=== PATIENT | female | born 1940 | race Caucasian/White ===

== ENCOUNTER 2020-04-23 12:13 | Inpatient (IN) ==
[2020-04-23] MEDS ORDERED: Dexamethasone 4 MG/ML VIAL IVP ONE (12:27)
[2020-04-23 13:10] LABS: Hemoglobin 11.8 g/dL (11.5-15.4); Immature Granulocytes % 0.4 % (0-4); Lymphocytes # 0.2 K/mcL (0.6-4.6); Lymphocytes % 9.6 %; Mean Corpuscular HGB Conc 33.7 g/dL (31.6-35.5); Mean Corpuscular Hemoglobin 30.9 pg (28.0-33.3); Mean Corpuscular Volume 91.6 fL (83.0-100.0); Mean Platelet Volume 11.6 fL (9.4-12.4); Monocytes # 0.3 K/mcL (0.0-1.3); Red Blood Count 3.82 M/mcL (3.82-4.97); Red Cell Distribution Width 17.7 % (11.5-14.5); White Blood Count 2.5 K/mcL (4.3-11.1)
[2020-04-23 13:12] LABS: Platelet Count 58 K/mcL (140-400)
[2020-04-23 13:14] LABS: INR 1.2; Prothrombin Time 14.1 Seconds (9.4-12.1)
[2020-04-23 13:16] LABS: Activated Partial Thrombo Time 43.7 Seconds (26.0-36.0)
[2020-04-23 13:35] LABS: Alanine Aminotransferase 18 Units/L (7-52); Albumin 3.2 g/dL (3.5-5.7); Albumin/Globulin Ratio 1.3 (1.1-2.2); Alkaline Phosphatase 69 Units/L (34-104); Aspartate Amino Transferase 43 Units/L (13-39); BUN/Creatinine Ratio 19 (6-26); Bilirubin,Direct 0.2 mg/dL (0.0-0.2); Bilirubin,Indirect 0.5 mg/dL (0.0-1.0); Bilirubin,Total 0.7 mg/dL (0.3-1.0); Blood Urea Nitrogen 10 mg/dL (8-23); C-Reactive Protein 32 mg/L (Less than 10); Calcium 8.2 mg/dL (8.6-10.3); Carbon Dioxide 27 mEq/L (23-29); Chloride 97 mEq/L (98-107); Globulin 2.4 g/dL (2.4-3.5); Glucose 134 mg/dL (70-105); Lactate Dehydrogenase 226 Units/L (140-271); Magnesium 1.5 mg/dL (1.6-2.6); Osmolality,Calculated 277 (280-300); Phosphorous 2.7 mg/dL (2.7-4.5); Potassium 3.4 mEq/L (3.5-5.1); Sodium 133 mEq/L (136-145); Total Protein 5.6 g/dL (6.4-8.9); Troponin I 0.05 ng/mL (< 0.04); eGFR For African Americans > 60 (> 60); eGFR For Non-African Americans > 60 (> 60)
[2020-04-23 14:10] LABS: Ferritin 391 ng/mL (10-120)
[2020-04-23 15:36] LABS: Bilirubin,Urine Negative (Negative); Blood,Urine Negative (Negative); Clarity,Urine Clear (Clear); Color,Urine Light-Yellow (Yellow); Glucose,Urine (UA) Normal (Normal); Ketones,Urine Negative (Negative); Leukocyte Esterase,Urine Negative (Negative); Nitrite,Urine Negative (Negative); Protein,Urine Negative (Neg-Trace); Specific Gravity,Urine 1.016 (1.010-1.025); Urobilinogen,Urine Normal (Normal)
[2020-04-23] MEDS ORDERED: Naloxone 0.4 MG/ML INJ IVP PRN (17:22)
[2020-04-23] MEDS ORDERED: Acetaminophen 325 MG TABLET PO PRN (17:22)
[2020-04-23] MEDS ORDERED: Ondansetron 4 MG/2 ML VIAL IVP PRN (17:22)
[2020-04-23] MEDS ORDERED: *HR* Dextrose 50 % in Water (Vial) 50 ML VIAL IVP PRN (17:24)
[2020-04-23] MEDS ORDERED: Dextrose Gel 15 GM/37.5 ML TUBE PO PRN ×2 (17:24)
[2020-04-23] MEDS ORDERED: D5% in Water 1,000 ML IVC PRN (17:24)
[2020-04-23] MEDS ORDERED: Potassium Chloride Elixir 20 MEQ/15 ML UDC PO ONE (17:40)
[2020-04-23] MEDS ORDERED: Benzonatate 100 MG CAPSULE PO PRN (17:42)
[2020-04-23] MEDS: Insulin LISPRO 300 UNITS/3 ML VIAL SQ SCH (20:27)
[2020-04-23] MEDS ORDERED: *HR* LORazepam 0.5 MG TABLET PO PRN (21:00)
[2020-04-23] MEDS: *HR* Heparin 5,000 UNIT/ML VIAL SQ SCH (23:40)
[2020-04-24 04:21] LABS: Monocytes % 13.6 %; Red Cell Distribution Width 17.5 % (11.5-14.5)
[2020-04-24 04:22] LABS: Basophils % 0.8 %; Hematocrit 33.6 % (35.3-44.9); Hemoglobin 11.3 g/dL (11.5-15.4); Immature Granulocytes % 0.8 % (0-4); Immature Platelets 5.2 % (1.1-6.1); Lymphocytes # 0.3 K/mcL (0.6-4.6); Lymphocytes % 23.7 %; Mean Corpuscular HGB Conc 33.6 g/dL (31.6-35.5); Mean Corpuscular Hemoglobin 30.5 pg (28.0-33.3); Mean Corpuscular Volume 90.8 fL (83.0-100.0); Mean Platelet Volume 12.2 fL (9.4-12.4); Monocytes # 0.2 K/mcL (0.0-1.3); Neutrophils # 0.7 K/mcL (1.6-8.9); Segmented Neutrophils % 61.1 %; White Blood Count 1.2 K/mcL (4.3-11.1)
[2020-04-24 04:23] LABS: Platelet Count 45 K/mcL (140-400)
[2020-04-24 04:37] LABS: Alanine Aminotransferase 15 Units/L (7-52); Albumin 2.8 g/dL (3.5-5.7); Albumin/Globulin Ratio 1.3 (1.1-2.2); Alkaline Phosphatase 64 Units/L (34-104); Aspartate Amino Transferase 35 Units/L (13-39); BUN/Creatinine Ratio 23 (6-26); Bilirubin,Total 0.6 mg/dL (0.3-1.0); Blood Urea Nitrogen 11 mg/dL (8-23); Calcium 7.9 mg/dL (8.6-10.3); Carbon Dioxide 27 mEq/L (23-29); Chloride 100 mEq/L (98-107); Globulin 2.1 g/dL (2.4-3.5); Glucose 238 mg/dL (70-105); Magnesium 1.5 mg/dL (1.6-2.6); Osmolality,Calculated 285 (280-300); Phosphorous 3.2 mg/dL (2.7-4.5); Potassium 2.9 mEq/L (3.5-5.1); Sodium 134 mEq/L (136-145); Total Protein 4.9 g/dL (6.4-8.9); Troponin I 0.04 ng/mL (< 0.04); eGFR For African Americans > 60 (> 60); eGFR For Non-African Americans > 60 (> 60)
[2020-04-24 06:14] LABS: Reactive Lymphocytes Present (Not Present)
[2020-04-24 06:15] LABS: Platelet Estimate Marked Decrease (Normal)
[2020-04-24] MEDS: Insulin LISPRO 300 UNITS/3 ML VIAL SQ SCH ×2 (08:31→11:48)
[2020-04-24] MEDS: *HR* Heparin 5,000 UNIT/ML VIAL SQ SCH (08:33)
[2020-04-24] MEDS ORDERED: Dexamethasone 4 MG/ML VIAL IVP SCH (09:00)
[2020-04-24] MEDS ORDERED: Potassium Chloride Elixir 20 MEQ/15 ML UDC PO ONE (10:05)
[2020-04-24 11:52] VITALS: BP 133/68
== END 2020-04-24 15:34 | disposition home or self-care (01) | DRG 177 ==
LOC: 2NENU 12:13 → EMEROOARM 12:13 → 2NENU 19:40 → SUATTDRO 21:58
PROVIDERS: ADMIT Internal Medicine; ATTEND Internal Medicine

== ENCOUNTER 2020-04-28 12:41 | Inpatient (IN) ==
[2020-04-28] MEDS ORDERED: Acetaminophen 325 MG TABLET PO ONE (12:50)
[2020-04-28] MEDS ORDERED: Azithromycin 500 MG in 0.9 % Sodium Chloride 250 ML IVPB ONE (12:50)
[2020-04-28] MEDS ORDERED: Ondansetron 4 MG/2 ML VIAL IVP ONE (12:50)
[2020-04-28] MEDS ORDERED: Dexamethasone 4 MG/ML VIAL IVP ONE ×2 (12:52→15:17)
[2020-04-28] MEDS ORDERED: 0.9 % Sodium Chloride 1,000 ML IVC ONE (13:05)
[2020-04-28 13:17] LABS: Basophils % 0.2 %; Mean Corpuscular Hemoglobin 30.8 pg (28.0-33.3)
[2020-04-28 13:19] LABS: Hematocrit 36.1 % (35.3-44.9); Hemoglobin 12.2 g/dL (11.5-15.4); Immature Granulocytes % 1.4 % (0-4); Immature Platelets 5.9 % (1.1-6.1); Lymphocytes # 0.2 K/mcL (0.6-4.6); Lymphocytes % 3.8 %; Mean Corpuscular HGB Conc 33.8 g/dL (31.6-35.5); Mean Corpuscular Volume 91.2 fL (83.0-100.0); Mean Platelet Volume 11.9 fL (9.4-12.4); Monocytes # 0.2 K/mcL (0.0-1.3); Monocytes % 4.1 %; Neutrophils # 5.3 K/mcL (1.6-8.9); Red Blood Count 3.96 M/mcL (3.82-4.97); Red Cell Distribution Width 18.2 % (11.5-14.5); Segmented Neutrophils % 90.5 %; White Blood Count 5.8 K/mcL (4.3-11.1)
[2020-04-28 13:28] LABS: Platelet Count 54 K/mcL (140-400)
[2020-04-28 13:43] LABS: Alanine Aminotransferase 29 Units/L (7-52); Albumin 2.9 g/dL (3.5-5.7); Albumin/Globulin Ratio 1.2 (1.1-2.2); Alkaline Phosphatase 90 Units/L (34-104); Aspartate Amino Transferase 54 Units/L (13-39); BUN/Creatinine Ratio 42 (6-26); Bilirubin,Direct 0.3 mg/dL (0.0-0.2); Bilirubin,Indirect 0.5 mg/dL (0.0-1.0); Bilirubin,Total 0.8 mg/dL (0.3-1.0); Blood Urea Nitrogen 22 mg/dL (8-23); C-Reactive Protein 131 mg/L (Less than 10); Calcium 8.3 mg/dL (8.6-10.3); Carbon Dioxide 25 mEq/L (23-29); Chloride 97 mEq/L (98-107); Globulin 2.4 g/dL (2.4-3.5); Glucose 182 mg/dL (70-105); Lactate Dehydrogenase 285 Units/L (140-271); Magnesium 1.4 mg/dL (1.6-2.6); Osmolality,Calculated 278 (280-300); Phosphorous 2.4 mg/dL (2.7-4.5); Potassium 3.6 mEq/L (3.5-5.1); Sodium 130 mEq/L (136-145); Total Protein 5.3 g/dL (6.4-8.9); Troponin I 0.04 ng/mL (< 0.04); eGFR For African Americans > 60 (> 60); eGFR For Non-African Americans > 60 (> 60)
[2020-04-28] MEDS ORDERED: Magnesium Sulfate 1 GM/102 ML PIGGYBACK IVPB ONE (13:49)
[2020-04-28 14:44] LABS: INR 1.3
[2020-04-28] MEDS ORDERED: Ondansetron ODT 4 MG TAB.RAPDIS SL PRN (14:45)
[2020-04-28] MEDS ORDERED: Naloxone 0.4 MG/ML INJ IVP PRN (14:45)
[2020-04-28 14:47] LABS: Activated Partial Thrombo Time 28.1 Seconds (26.0-36.0)
[2020-04-28] MEDS ORDERED: Aspirin 325 MG TABLET PO ONE (15:05)
[2020-04-28] MEDS ORDERED: *HR* Dextrose 50 % in Water (Vial) 50 ML VIAL IVP PRN (15:10)
[2020-04-28] MEDS ORDERED: Dextrose Gel 15 GM/37.5 ML TUBE PO PRN ×2 (15:10)
[2020-04-28] MEDS ORDERED: D5% in Water 1,000 ML IVC PRN (15:10)
[2020-04-28 15:51] LABS: Ferritin 398 ng/mL (10-120)
[2020-04-28] MEDS: Insulin DETEMIR 100 UNIT/ML X5UNITS SQ SCH (20:05)
[2020-04-28] MEDS: Insulin LISPRO 300 UNITS/3 ML VIAL SQ SCH ×2 (21:55→22:00)
[2020-04-29 03:29] LABS: Hematocrit 33.3 % (35.3-44.9); Mean Corpuscular Hemoglobin 30.6 pg (28.0-33.3); Mean Corpuscular Volume 92.5 fL (83.0-100.0); Mean Platelet Volume 11.5 fL (9.4-12.4); Red Blood Count 3.6 M/mcL (3.82-4.97)
[2020-04-29 03:31] LABS: Immature Platelets 6.6 % (1.1-6.1); White Blood Count 3.2 K/mcL (4.3-11.1)
[2020-04-29 03:43] LABS: BUN/Creatinine Ratio 45 (6-26); Blood Urea Nitrogen 20 mg/dL (8-23); Calcium 7.8 mg/dL (8.6-10.3); Carbon Dioxide 27 mEq/L (23-29); Chloride 102 mEq/L (98-107); Glucose 228 mg/dL (70-105); Osmolality,Calculated 286 (280-300); Potassium 3.9 mEq/L (3.5-5.1); Sodium 133 mEq/L (136-145); eGFR For African Americans > 60 (> 60); eGFR For Non-African Americans > 60 (> 60)
[2020-04-29] MEDS: *HR* Enoxaparin 40 MG/0.4 ML SYRINGE SQ SCH (04:42)
[2020-04-29] MEDS: Insulin LISPRO 300 UNITS/3 ML VIAL SQ SCH ×4 (08:01→21:19)
[2020-04-29] MEDS: Furosemide 40 MG/4 ML VIAL IVP SCH ×2 (08:03→21:10)
[2020-04-29] MEDS: Aspirin 81 MG TAB.CHEW PO SCH (08:03)
[2020-04-29] MEDS: Dexamethasone 4 MG/ML VIAL IVP SCH (08:04)
[2020-04-29] MEDS: Acetaminophen 325 MG TABLET PO PRN ×2 (13:44→21:26)
[2020-04-29] MEDS: Insulin DETEMIR 100 UNIT/ML X5UNITS SQ SCH (21:11)
[2020-04-30] MEDS ORDERED: Melatonin 3 MG TABLET PO ONE (03:08)
[2020-04-30] MEDS: *HR* Enoxaparin 40 MG/0.4 ML SYRINGE SQ SCH (06:09)
[2020-04-30] MEDS: Dexamethasone 4 MG/ML VIAL IVP SCH (10:34)
[2020-04-30] MEDS: Aspirin 81 MG TAB.CHEW PO SCH (10:34)
[2020-04-30] MEDS: Insulin LISPRO 300 UNITS/3 ML VIAL SQ SCH ×4 (10:35→21:48)
[2020-04-30] MEDS: Furosemide 40 MG/4 ML VIAL IVP SCH ×2 (10:35→21:48)
[2020-04-30] MEDS: Acetaminophen 325 MG TABLET PO PRN ×2 (11:17→18:53)
[2020-04-30 11:44] LABS: Hematocrit 41.2 % (35.3-44.9); Immature Platelets 8.8 % (1.1-6.1); Mean Corpuscular Hemoglobin 30.3 pg (28.0-33.3); Mean Corpuscular Volume 89.2 fL (83.0-100.0); Mean Platelet Volume 11.5 fL (9.4-12.4); Red Blood Count 4.62 M/mcL (3.82-4.97); Red Cell Distribution Width 17.8 % (11.5-14.5)
[2020-04-30 12:07] LABS: BUN/Creatinine Ratio 43 (6-26); Blood Urea Nitrogen 20 mg/dL (8-23); Calcium 8.6 mg/dL (8.6-10.3); Carbon Dioxide 25 mEq/L (23-29); Chloride 97 mEq/L (98-107); Glucose 82 mg/dL (70-105); Osmolality,Calculated 280 (280-300); Potassium 3.8 mEq/L (3.5-5.1); Sodium 134 mEq/L (136-145); eGFR For African Americans > 60 (> 60); eGFR For Non-African Americans > 60 (> 60)
[2020-04-30] MEDS ORDERED: Insulin DETEMIR 100 UNIT/ML X5UNITS SQ SCH (21:00)
[2020-04-30] MEDS: *HR* LORazepam 2 MG/ML VIAL IVP PRN (21:47)
[2020-05-01] MEDS: *HR* Enoxaparin 40 MG/0.4 ML SYRINGE SQ SCH (05:35)
[2020-05-01 06:32] LABS: Red Cell Distribution Width 17.5 % (11.5-14.5)
[2020-05-01 06:35] LABS: Hematocrit 40.7 % (35.3-44.9); Hemoglobin 13.7 g/dL (11.5-15.4); Immature Platelets 7.7 % (1.1-6.1); Mean Corpuscular HGB Conc 33.7 g/dL (31.6-35.5); Mean Corpuscular Hemoglobin 30.3 pg (28.0-33.3); Mean Platelet Volume 11.9 fL (9.4-12.4); Red Blood Count 4.52 M/mcL (3.82-4.97); White Blood Count 6.1 K/mcL (4.3-11.1)
[2020-05-01 06:47] LABS: BUN/Creatinine Ratio 44 (6-26); Blood Urea Nitrogen 22 mg/dL (8-23); Calcium 8.9 mg/dL (8.6-10.3); Carbon Dioxide 30 mEq/L (23-29); Chloride 92 mEq/L (98-107); Glucose 188 mg/dL (70-105); Osmolality,Calculated 286 (280-300); Potassium 3.6 mEq/L (3.5-5.1); Sodium 134 mEq/L (136-145); eGFR For African Americans > 60 (> 60); eGFR For Non-African Americans > 60 (> 60)
[2020-05-01] MEDS: Insulin LISPRO 300 UNITS/3 ML VIAL SQ SCH ×5 (09:04→21:51)
[2020-05-01] MEDS: Aspirin 81 MG TAB.CHEW PO SCH (09:12)
[2020-05-01] MEDS: Furosemide 40 MG/4 ML VIAL IVP SCH ×2 (09:12→21:50)
[2020-05-01] MEDS: Dexamethasone 4 MG/ML VIAL IVP SCH (09:13)
[2020-05-01] MEDS ORDERED: Dexamethasone Sodium Phos/PF 10 MG/ML VIAL IVP SCH (09:15)
[2020-05-01] MEDS ORDERED: Insulin DETEMIR 100 UNIT/ML X5UNITS SQ SCH (09:15)
[2020-05-01] MEDS ORDERED: Dexamethasone 4 MG/ML VIAL IVP ONE (09:30)
[2020-05-01] MEDS: Acetaminophen 325 MG TABLET PO PRN (10:59)
[2020-05-01] MEDS ORDERED: Insulin DETEMIR 100 UNIT/ML X5UNITS SQ ONE (17:31)
[2020-05-01] MEDS: *HR* LORazepam 2 MG/ML VIAL IVP PRN (21:51)
[2020-05-01] MEDS: Insulin DETEMIR 100 UNIT/ML X5UNITS SQ SCH (21:51)
[2020-05-02] MEDS: *HR* Enoxaparin 40 MG/0.4 ML SYRINGE SQ SCH (05:35)
[2020-05-02 05:57] LABS: Mean Corpuscular Volume 88.5 fL (83.0-100.0)
[2020-05-02 05:59] LABS: Hematocrit 39.2 % (35.3-44.9); Hemoglobin 13.4 g/dL (11.5-15.4); Immature Platelets 7.5 % (1.1-6.1); Mean Corpuscular HGB Conc 34.2 g/dL (31.6-35.5); Mean Corpuscular Hemoglobin 30.2 pg (28.0-33.3); Mean Platelet Volume 11.8 fL (9.4-12.4); Red Blood Count 4.43 M/mcL (3.82-4.97)
[2020-05-02 06:17] LABS: BUN/Creatinine Ratio 46 (6-26); Blood Urea Nitrogen 23 mg/dL (8-23); Calcium 8.9 mg/dL (8.6-10.3); Carbon Dioxide 34 mEq/L (23-29); Chloride 92 mEq/L (98-107); Glucose 126 mg/dL (70-105); Osmolality,Calculated 279 (280-300); Potassium 3.2 mEq/L (3.5-5.1); Sodium 132 mEq/L (136-145); eGFR For African Americans > 60 (> 60); eGFR For Non-African Americans > 60 (> 60)
[2020-05-02] MEDS: Dexamethasone Sodium Phos/PF 10 MG/ML VIAL IVP SCH (07:57)
[2020-05-02] MEDS: Furosemide 40 MG/4 ML VIAL IVP SCH ×2 (07:58→20:24)
[2020-05-02] MEDS: Aspirin 81 MG TAB.CHEW PO SCH (08:00)
[2020-05-02] MEDS: Insulin LISPRO 300 UNITS/3 ML VIAL SQ SCH ×9 (08:56→20:24)
[2020-05-02] MEDS: Insulin DETEMIR 100 UNIT/ML X5UNITS SQ SCH ×2 (09:12→20:24)
[2020-05-02] MEDS: Acetaminophen 325 MG TABLET PO PRN ×2 (09:12→21:10)
[2020-05-02] MEDS: Sennosides/Docusate Sodium TABLET PO SCH ×2 (16:38→20:24)
[2020-05-02] MEDS: polyethylene glycoL 3350 17 GM POWD.PACK PO SCH (16:38)
[2020-05-02] MEDS ORDERED: QUEtiapine Fumarate 100 MG TABLET PO SCH (21:00)
[2020-05-02] MEDS: *HR* LORazepam 2 MG/ML VIAL IVP PRN (21:05)
[2020-05-03] MEDS: *HR* Enoxaparin 40 MG/0.4 ML SYRINGE SQ SCH (04:30)
[2020-05-03 04:44] LABS: Hematocrit 38.2 % (35.3-44.9); Hemoglobin 12.9 g/dL (11.5-15.4); Immature Platelets 7.7 % (1.1-6.1); Mean Corpuscular HGB Conc 33.8 g/dL (31.6-35.5); Mean Corpuscular Hemoglobin 30.1 pg (28.0-33.3); Mean Corpuscular Volume 89.3 fL (83.0-100.0); Mean Platelet Volume 12.3 fL (9.4-12.4); Red Blood Count 4.28 M/mcL (3.82-4.97); Red Cell Distribution Width 16.8 % (11.5-14.5); White Blood Count 8.4 K/mcL (4.3-11.1)
[2020-05-03 05:17] LABS: BUN/Creatinine Ratio 53 (6-26); Blood Urea Nitrogen 32 mg/dL (8-23); Calcium 8.8 mg/dL (8.6-10.3); Carbon Dioxide 32 mEq/L (23-29); Chloride 93 mEq/L (98-107); Glucose 92 mg/dL (70-105); Osmolality,Calculated 279 (280-300); Potassium 4.2 mEq/L (3.5-5.1); Sodium 131 mEq/L (136-145); eGFR For African Americans > 60 (> 60); eGFR For Non-African Americans > 60 (> 60)
[2020-05-03] MEDS: Dexamethasone Sodium Phos/PF 10 MG/ML VIAL IVP SCH (08:28)
[2020-05-03] MEDS: Insulin LISPRO 300 UNITS/3 ML VIAL SQ SCH ×4 (08:28→12:27)
[2020-05-03] MEDS: Sennosides/Docusate Sodium TABLET PO SCH (08:28)
[2020-05-03] MEDS: Furosemide 40 MG/4 ML VIAL IVP SCH (08:28)
[2020-05-03] MEDS: Aspirin 81 MG TAB.CHEW PO SCH (08:29)
[2020-05-03] MEDS: Insulin DETEMIR 100 UNIT/ML X5UNITS SQ SCH (08:29)
[2020-05-03] MEDS: polyethylene glycoL 3350 17 GM POWD.PACK PO SCH (08:29)
[2020-05-03] MEDS: Acetaminophen 325 MG TABLET PO PRN (10:39)
[2020-05-03] MEDS ORDERED: Atropine 1% Opth Drops 100 DROP/5 ML BOTTLE SL PRN (13:01)
[2020-05-03] MEDS: *HR* FentaNYL (PF) 100 MCG/2 ML VIAL IVP PRN ×2 (13:12→20:01)
[2020-05-03] MEDS: *HR* LORazepam 2 MG/ML VIAL IVP PRN ×3 (13:13→23:24)
[2020-05-04] MEDS: *HR* LORazepam 2 MG/ML VIAL IVP PRN ×3 (01:26→21:55)
[2020-05-04] MEDS: *HR* FentaNYL (PF) 100 MCG/2 ML VIAL IVP PRN ×10 (01:27→22:58)
[2020-05-04] MEDS: Haloperidol Lactate 5 MG/ML VIAL IVP PRN (20:31)
[2020-05-05] MEDS: *HR* FentaNYL (PF) 100 MCG/2 ML VIAL IVP PRN ×9 (00:03→20:53)
[2020-05-05] MEDS: *HR* LORazepam 2 MG/ML VIAL IVP PRN ×6 (00:03→20:52)
[2020-05-05] MEDS: Haloperidol Lactate 5 MG/ML VIAL IVP PRN (04:04)
[2020-05-05 19:53] VITALS: BP 105/54
[2020-05-07] MEDS ORDERED: Dexamethasone Sodium Phos/PF 10 MG/ML VIAL IVP SCH (09:00)
== END 2020-05-05 23:20 | disposition expired | DRG 177 ==
LOC: 2NENU 12:41 → EMEROOARM 12:41 → 2NENU 21:12 → SUATTDRO 04-29 14:47
PROVIDERS: ADMIT Internal Medicine; ATTEND Internal Medicine